=== PATIENT | male | born 1945 | race Caucasian/White ===

== ENCOUNTER → 2016-09-27 | Outpatient (CLI) | payer MEDICARE ==
[2016-09-27 09:46] LABS: CHOLESTEROL 160.43 mg/dL (0-200); Direct HDL 56 mg/dL (>40); TRIGLYCERIDES 77 mg/dL (<150)
[2016-09-27 09:57] LABS: DIRECT LDL 88 mg/dL (<100)
== END ==
LOC: OD 07:29
PROVIDERS: ATTEND Family Medicine Geriatric Medicine
DX: I12.9 Hypertensive chronic kidney disease with stage 1 through stage 4 chronic kidney disease, or unspecified chronic kidney disease (principal); N18.9 Chronic kidney disease, unspecified; E78.5 Hyperlipidemia, unspecified; R35.1 Nocturia; R53.83 Other fatigue
CPT/HCPCS: 36415; 80061; 84153; 84443

== ENCOUNTER → 2016-10-07 | Outpatient (CLI) | payer MEDICARE ==
[2016-10-07 12:32] LABS: APPEARANCE,URINE CLEAR; BILIRUBIN,URINE NEGATIVE (NEGATIVE); GLUCOSE, URINE NEGATIVE (NEGATIVE); KETONES,URINE NEGATIVE (NEGATIVE); LEUKOCYTE ESTERASE,URINE NEGATIVE (NEGATIVE); NITRITE,URINE NEGATIVE (NEGATIVE); PROTEIN,URINE NEGATIVE (NEGATIVE); URINE SPECIFIC GRAVITY 1.004; UROBILINOGEN,URINE NEGATIVE mg/dL (<2.0)
[2016-10-07 12:36] LABS: HEMATOCRIT 40.3 % (37.9-51.0); HEMOGLOBIN 13.9 g/dL (13.5-17.0); HGB HCT DIFFERENCE 1.4; MEAN CORPUSCULAR HGB CONC 34.4 g/dL (32.0-36.0); MEAN CORPUSCULAR VOLUME 90 fl (80-97); RED BLOOD COUNT 4.47 10^6/uL (4.35-5.55); RED CELL DISTRIBUTION WIDTH 12.3 % (11.5-14.0); WHITE BLOOD COUNT 4.7 10^3/uL (4.0-10.5)
[2016-10-07 13:26] LABS: ANION GAP 15 (5-19); BLOOD UREA NITROGEN 21 mg/dL (7-20); CALCIUM 9.5 mg/dL (8.4-10.2); CARBON DIOXIDE 24 mmol/L (22-30); CHLORIDE 98 mmol/L (98-107); CREATININE RESULT 1.38 mg/dL (0.52-1.25); GLUCOSE 99 mg/dL (75-110)
== END ==
LOC: OD 10:46
PROVIDERS: ATTEND Internal Medicine Nephrology
DX: I12.9 Hypertensive chronic kidney disease with stage 1 through stage 4 chronic kidney disease, or unspecified chronic kidney disease (principal); N18.3 Chronic kidney disease, stage 3 (moderate)
CPT/HCPCS: 36415; 80048; 81001; 85027

== ENCOUNTER → 2017-06-05 | Outpatient (CLI) | payer MEDICARE ==
[2017-06-05 09:20] LABS: ABSOLUTE BASOPHILS # (AUTO) 0.1 10^3/uL (0.0-0.2); ABSOLUTE EOSINOPHILS # (AUTO) 0.2 10^3/uL (0.0-0.6); ABSOLUTE LYMPHOCYTES (AUTO) 1.2 10^3/uL (0.5-4.7); ABSOLUTE MONOCYTES (AUTO) 0.6 10^3/uL (0.1-1.4); ABSOLUTE NEUT (AUTO) 3.2 10^3/uL (1.7-8.2); HEMATOCRIT 39.5 % (37.9-51.0); HEMOGLOBIN 13.8 g/dL (13.5-17.0); HGB HCT DIFFERENCE 1.9; LYMPHOCYTES % (AUTO) 22.5 % (13-45); MEAN CORPUSCULAR HEMOGLOBIN 31.7 pg (27.0-33.4); MEAN CORPUSCULAR HGB CONC 34.9 g/dL (32.0-36.0); MEAN CORPUSCULAR VOLUME 91 fl (80-97); MONOCYTES % (AUTO) 11.4 % (3-13); RED BLOOD COUNT 4.34 10^6/uL (4.35-5.55); RED CELL DISTRIBUTION WIDTH 12.9 % (11.5-14.0); SEGMENTED NEUTROPHILS % (AUTO) 62.1 % (42-78); WHITE BLOOD COUNT 5.2 10^3/uL (4.0-10.5)
[2017-06-05 09:52] LABS: ALANINE AMINOTRANSFERASE 40 U/L (21-72); ALBUMIN 4.4 g/dL (3.5-5.0); ALKALINE PHOSPHATASE 52 U/L (38-126); ANION GAP 12 (5-19); ASPARTATE AMINO TRANSFERASE 27 U/L (17-59); BILIRUBIN,DIRECT 0.4 mg/dL (0.0-0.4); BILIRUBIN,TOTAL 0.7 mg/dL (0.2-1.3); BLOOD UREA NITROGEN 19 mg/dL (7-20); CALCIUM 9.7 mg/dL (8.4-10.2); CARBON DIOXIDE 27 mmol/L (22-30); CHLORIDE 104 mmol/L (98-107); CHOLESTEROL 170.09 mg/dL (0-200); CREATININE RESULT 1.44 mg/dL (0.52-1.25); Direct HDL 55 mg/dL (>40); GLUCOSE 92 mg/dL (75-110); POTASSIUM 4.8 mmol/L (3.6-5.0); SODIUM 142.8 mmol/L (137-145); TRIGLYCERIDES 93 mg/dL (<150)
[2017-06-05 10:03] LABS: DIRECT LDL 105 mg/dL (<100)
== END ==
LOC: OD 07:56
PROVIDERS: ATTEND Internal Medicine
DX: I12.9 Hypertensive chronic kidney disease with stage 1 through stage 4 chronic kidney disease, or unspecified chronic kidney disease (principal); N18.9 Chronic kidney disease, unspecified; E78.5 Hyperlipidemia, unspecified; R35.1 Nocturia; R53.82 Chronic fatigue, unspecified
CPT/HCPCS: 36415; 80053; 80061; 84153; 84443; 85025

== ENCOUNTER → 2017-10-06 | Outpatient (CLI) | payer MEDICARE ==
[2017-10-06 10:39] LABS: HEMATOCRIT 42.6 % (37.9-51.0); HEMOGLOBIN 14.8 g/dL (13.5-17.0); MEAN CORPUSCULAR HEMOGLOBIN 31.3 pg (27.0-33.4); MEAN CORPUSCULAR HGB CONC 34.7 g/dL (32.0-36.0); MEAN CORPUSCULAR VOLUME 90 fl (80-97); PLATELET COUNT 252 10^3/uL (150-450); RED BLOOD COUNT 4.73 10^6/uL (4.35-5.55); RED CELL DISTRIBUTION WIDTH 12.8 % (11.5-14.0); WHITE BLOOD COUNT 5.6 10^3/uL (4.0-10.5)
[2017-10-06 11:00] LABS: ANION GAP 14 (5-19); BLOOD UREA NITROGEN 19 mg/dL (7-20); CALCIUM 10.8 mg/dL (8.4-10.2); CARBON DIOXIDE 24 mmol/L (22-30); CHLORIDE 101 mmol/L (98-107); GLUCOSE 96 mg/dL (75-110); POTASSIUM 5.4 mmol/L (3.6-5.0); SODIUM 138.6 mmol/L (137-145)
== END ==
LOC: OD 10:01
PROVIDERS: ATTEND Internal Medicine Nephrology
DX: I12.9 Hypertensive chronic kidney disease with stage 1 through stage 4 chronic kidney disease, or unspecified chronic kidney disease (principal); N18.3 Chronic kidney disease, stage 3 (moderate)
CPT/HCPCS: 36415; 80048; 85027

== ENCOUNTER → 2018-07-29 | Outpatient (CLI) | payer MEDICARE ==
[2018-07-29 08:38] LABS: ABSOLUTE EOSINOPHILS # (AUTO) 0.1 10^3/uL (0.0-0.6); ABSOLUTE LYMPHOCYTES (AUTO) 1.1 10^3/uL (0.5-4.7); ABSOLUTE MONOCYTES (AUTO) 0.6 10^3/uL (0.1-1.4); BASOPHILS % (AUTO) 0.7 % (0-2); EOSINOPHILS % (AUTO) 1.5 % (0-6); HEMATOCRIT 40.4 % (37.9-51.0); HEMOGLOBIN 14.1 g/dL (13.5-17.0); LYMPHOCYTES % (AUTO) 19.1 % (13-45); MEAN CORPUSCULAR HEMOGLOBIN 31.5 pg (27.0-33.4); MEAN CORPUSCULAR HGB CONC 34.8 g/dL (32.0-36.0); MEAN CORPUSCULAR VOLUME 91 fl (80-97); MONOCYTES % (AUTO) 10.9 % (3-13); PLATELET COUNT 242 10^3/uL (150-450); RED BLOOD COUNT 4.46 10^6/uL (4.35-5.55); SEGMENTED NEUTROPHILS % (AUTO) 67.8 % (42-78); TOTAL CELLS COUNTED % (AUTO) 100 %; WHITE BLOOD COUNT 5.9 10^3/uL (4.0-10.5)
[2018-07-29 08:52] LABS: ALANINE AMINOTRANSFERASE 27 U/L (21-72); ALBUMIN 4.6 g/dL (3.5-5.0); ALKALINE PHOSPHATASE 53 U/L (38-126); ANION GAP 10 (5-19); ASPARTATE AMINO TRANSFERASE 22 U/L (17-59); BILIRUBIN,DIRECT 0.2 mg/dL (0.0-0.4); BILIRUBIN,TOTAL 0.6 mg/dL (0.2-1.3); BLOOD UREA NITROGEN 20 mg/dL (7-20); CALCIUM 9.9 mg/dL (8.4-10.2); CARBON DIOXIDE 25 mmol/L (22-30); CHLORIDE 104 mmol/L (98-107); CHOLESTEROL 176.14 mg/dL (0-200); GLUCOSE 109 mg/dL (75-110); POTASSIUM 4.7 mmol/L (3.6-5.0); TOTAL PROTEIN 7.1 g/dL (6.3-8.2); TRIGLYCERIDES 90 mg/dL (<150)
[2018-07-29 09:03] LABS: DIRECT LDL 105 mg/dL (<100)
== END ==
LOC: OD 07:50
PROVIDERS: ATTEND Internal Medicine
DX: I10 Essential (primary) hypertension (principal); E78.5 Hyperlipidemia, unspecified; R35.1 Nocturia
CPT/HCPCS: 36415; 80053; 80061; 84153; 84443; 85025

== ENCOUNTER → 2018-08-10 | Outpatient (CLI) | payer MEDICARE ==
[2018-08-10 09:57] LABS: HEMATOCRIT 40.7 % (37.9-51.0); HEMOGLOBIN 14.2 g/dL (13.5-17.0); MEAN CORPUSCULAR HEMOGLOBIN 31.7 pg (27.0-33.4); MEAN CORPUSCULAR HGB CONC 34.9 g/dL (32.0-36.0); MEAN CORPUSCULAR VOLUME 91 fl (80-97); PLATELET COUNT 236 10^3/uL (150-450); RED BLOOD COUNT 4.48 10^6/uL (4.35-5.55); RED CELL DISTRIBUTION WIDTH 12.5 % (11.5-14.0); WHITE BLOOD COUNT 6.2 10^3/uL (4.0-10.5)
[2018-08-10 09:57] LABS: APPEARANCE,URINE CLEAR; BILIRUBIN,URINE NEGATIVE (NEGATIVE); COLOR,URINE YELLOW; GLUCOSE, URINE NEGATIVE (NEGATIVE); KETONES,URINE NEGATIVE (NEGATIVE); LEUKOCYTE ESTERASE,URINE NEGATIVE (NEGATIVE); NITRITE,URINE NEGATIVE (NEGATIVE); PROTEIN,URINE NEGATIVE (NEGATIVE); URINE SPECIFIC GRAVITY 1.005; UROBILINOGEN,URINE NEGATIVE mg/dL (<2.0)
[2018-08-10 13:15] LABS: ANION GAP 9 (5-19); BLOOD UREA NITROGEN 19 mg/dL (7-20); CALCIUM 9.9 mg/dL (8.4-10.2); CARBON DIOXIDE 28 mmol/L (22-30); CHLORIDE 101 mmol/L (98-107); GLUCOSE 114 mg/dL (75-110); POTASSIUM 4.6 mmol/L (3.6-5.0); SODIUM 137.6 mmol/L (137-145)
== END ==
LOC: OD 09:04
PROVIDERS: ATTEND Internal Medicine Nephrology
DX: I12.9 Hypertensive chronic kidney disease with stage 1 through stage 4 chronic kidney disease, or unspecified chronic kidney disease (principal); N18.3 Chronic kidney disease, stage 3 (moderate)
CPT/HCPCS: 36415; 80048; 81001; 85027

== ENCOUNTER 2018-11-24 15:23 | Emergency (ER) | payer MEDICARE ==
--- NOTE | 2018-11-24 16:28 | ER Document Report ---
ED Medical Screen (RME) - General Chief Complaint: Abdominal Pain Stated Complaint: ABDOMINAL PAIN Time Seen by Provider: 11/24/18 16:26 Primary Care Provider: Bryce MOFFETT MD [Primary Care Provider] - Follow up as needed Mode of Arrival: Ambulatory Information source: Patient Notes: 72-year-old male presented to ED for rectal bleeding that started about 2 PM. He states yesterday he was constipated took some laxatives. He states he had good results had for 5 bowel movements states he had some firm ones and then is gotten more more liquid as a day presents seated about 2 PM he had a mostly liquid with some flecks of stool in it that had blood in it. 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 He states he is also got a history of high blood pressure and hiatal hernia. He states he had a colonoscopy in the past as well as bilateral hip replacements. I have greeted and performed a rapid initial assessment of this patient. A comprehensive ED assessment and evaluation of the patient, analysis of test results and completion of medical decision making process will be conducted by an additional ED providers. TRAVEL OUTSIDE OF THE [place] IN LAST 30 DAYS: No - Related Data Allergies/Adverse Reactions: clopidogrel bisulfate [From Plavix] Allergy (Verified 11/24/18 15:41) severe itch Past Medical History - Past Medical History Cardiac Medical History: Reports: Hx Hypercholesterolemia - meds x 15 years, Hx Hypertension - meds x 10 years Denies: Hx Atrial Fibrillation, Hx Congestive Heart Failure, Hx Coronary Artery Disease, Hx Heart Attack, Hx Peripheral Vascular Disease, Hx Pulmonary Embolism, Hx Heart Murmur Pulmonary Medical History: Reports: Hx Bronchitis - last episode > 8 years ago Denies: Hx Asthma, Hx COPD, Hx Pneumonia, Hx Respiratory Failure, Hx Sleep Apnea, Hx Tuberculosis Neurological Medical History: Denies: Hx Seizures Renal/ Medical History: Denies: Hx Benign Prostatic Hyperplasia - does report nocturia x 1/night, Hx End Stage Renal Disease, Hx Kidney Stones, Hx Peritoneal Dialysis Malignancy Medical History: Denies Hx Leukemia, Denies Hx Lung Cancer GI Medical History: Reports: Hx Gastroesophageal Reflux Disease - meds x 10 years, Hx Hiatal Hernia. Denies: Hx Crohn's Disease, Hx Irritable Bowel, Hx Liver Failure, Hx Pancreatitis, Hx Ulcer - denies, but reports upper GI bleed Musculoskeltal Medical History: Reports Hx Arthritis, Denies Hx Fibromyalgia, Denies Hx Muscular Dystrophy Traumatic Medical History: Reports: Hx Fractures - r/t shrapnel 1967, Infectious Medical History: Denies: Hx HIV Past Surgical History: Reports: Hx Orthopedic Surgery. Denies: Hx Appendectomy, Hx Bowel Surgery, Hx Cholecystectomy, Hx Colostomy, Hx Coronary Artery Bypass Graft, Hx Gastric Bypass Surgery, Hx Herniorrhaphy, Hx Pacemaker, Hx Tonsillectomy - Immunizations Hx Diphtheria, Pertussis, Tetanus Vaccination: Yes Physical Exam - Vital signs Vitals: Temp Pulse Resp BP Pulse Ox 98.1 F 72 16 148/65 H 97 11/24/18 16:09 11/24/18 16:09 11/24/18 16:09 11/24/18 16:09 11/24/18 16:09 Course - Vital Signs Vital signs: Temp Pulse Resp BP Pulse Ox 98.1 F 72 16 148/65 H 97 11/24/18 16:09 11/24/18 16:09 11/24/18 16:09 11/24/18 16:09 11/24/18 16:09 Doctor's Discharge - Discharge Referrals: Bryce MOFFETT MD [Primary Care Provider] - Follow up as needed
[2018-11-24 18:11] LABS: ABSOLUTE MONOCYTES (AUTO) 0.5 10^3/uL (0.1-1.4); BASOPHILS % (AUTO) 0.8 % (0-2); EOSINOPHILS % (AUTO) 0.8 % (0-6); HEMATOCRIT 38.8 % (37.9-51.0); HEMOGLOBIN 13.4 g/dL (13.5-17.0); LYMPHOCYTES % (AUTO) 17.2 % (13-45); MEAN CORPUSCULAR HGB CONC 34.6 g/dL (32.0-36.0); MEAN CORPUSCULAR VOLUME 90 fl (80-97); MONOCYTES % (AUTO) 9.5 % (3-13); PLATELET COUNT 252 10^3/uL (150-450); RED BLOOD COUNT 4.33 10^6/uL (4.35-5.55); RED CELL DISTRIBUTION WIDTH 12.9 % (11.5-14.0); SEGMENTED NEUTROPHILS % (AUTO) 71.7 % (42-78); TOTAL CELLS COUNTED % (AUTO) 100 %; WHITE BLOOD COUNT 5.5 10^3/uL (4.0-10.5)
[2018-11-24 18:29] LABS: ALANINE AMINOTRANSFERASE 39 U/L (21-72); ALBUMIN 4.5 g/dL (3.5-5.0); ALKALINE PHOSPHATASE 50 U/L (38-126); ANION GAP 11 (5-19); ASPARTATE AMINO TRANSFERASE 27 U/L (17-59); BILIRUBIN,DIRECT 0.3 mg/dL (0.0-0.4); BILIRUBIN,TOTAL 0.3 mg/dL (0.2-1.3); BLOOD UREA NITROGEN 20 mg/dL (7-20); CALCIUM 9.8 mg/dL (8.4-10.2); CARBON DIOXIDE 25 mmol/L (22-30); CHLORIDE 93 mmol/L (98-107); GLUCOSE 103 mg/dL (75-110); POTASSIUM 5.1 mmol/L (3.6-5.0); SODIUM 128.5 mmol/L (137-145); TOTAL PROTEIN 7.3 g/dL (6.3-8.2)
--- NOTE | 2018-11-24 19:46 | ER Document Report ---
ED GI/ - General Chief Complaint: Abdominal Pain Stated Complaint: ABDOMINAL PAIN Time Seen by Provider: 11/24/18 16:26 Primary Care Provider: Bryce MOFFETT MD [ACTIVE STAFF] - Follow up as needed Mode of Arrival: Ambulatory Information source: Patient Notes: 72-year-old male presented to ED for complaint of rectal bleeding that started about 2 PM. He states yesterday he was constipated took some laxatives. He states he had good results with about 5 bowel movements and then about 2 PM he had a liquid bowel movement that had some flecks of blood in it. He states that he has had ischemic bowel in the past with a GI bleed in the stool looks the same to him as it did at that time. He states he has a history of high blood pressure and hiatal hernia. He states he has had a colonoscopy in the past with bilateral hip replacements. Patient states there is no active bleeding at this time and he has not had any stools since the Friday at 2 PM. TRAVEL OUTSIDE OF THE [place] IN LAST 30 DAYS: No - HPI Patient complains to provider of: Other - Rectal bleeding Onset: This afternoon Timing/Duration: Sudden Quality of pain: No pain Associated symptoms: Other - Active bleeding after taking laxative for constipation yesterday Exacerbated by: Denies Relieved by: Denies Similar symptoms previously: Yes Recently seen / treated by doctor: No - Related Data Allergies/Adverse Reactions: clopidogrel bisulfate [From Plavix] Allergy (Verified 11/24/18 15:41) severe itch Past Medical History - General Information source: Patient - Social History Smoking Status: Former Smoker Cigarette use (# per day): No Frequency of alcohol use: None Drug Abuse: None Lives with: Family Family History: Reviewed & Not Pertinent Patient has suicidal ideation: No Patient has homicidal ideation: No - Past Medical History Cardiac Medical History: Reports: Hx Hypercholesterolemia - meds x 15 years, Hx Hypertension - meds x 10 years Pulmonary Medical History: Reports: Hx Bronchitis - last episode > 8 years ago EENT Medical History: Reports: None Neurological Medical History: Reports: None Endocrine Medical History: Reports: None Renal/ Medical History: Reports: None Malignancy Medical History: Reports None GI Medical History: Reports: Hx Gastroesophageal Reflux Disease - meds x 10 years, Hx Hiatal Hernia, Hx Colonoscopy Musculoskeletal Medical History: Reports Hx Arthritis Skin Medical History: Reports None Psychiatric Medical History: Reports: None Traumatic Medical History: Reports: Hx Fractures - r/t [facility] 1967, Infectious Medical History: Reports: None Past Surgical History: Reports: Hx Orthopedic Surgery - Immunizations Hx Diphtheria, Pertussis, Tetanus Vaccination: Yes Hx Pneumococcal Vaccination: 04/20/14 Review of Systems - Review of Systems Constitutional: No symptoms reported EENT: No symptoms reported Cardiovascular: No symptoms reported Respiratory: No symptoms reported Gastrointestinal: Rectal bleeding Genitourinary: No symptoms reported Male Genitourinary: No symptoms reported Musculoskeletal: No symptoms reported Skin: No symptoms reported Hematologic/Lymphatic: No symptoms reported Neurological/Psychological: No symptoms reported -: Yes All other systems reviewed and negative Physical Exam - Vital signs Vitals: Temp Pulse Resp BP Pulse Ox 98.1 F 72 16 148/65 H 97 11/24/18 16:09 11/24/18 16:09 11/24/18 16:09 11/24/18 16:09 11/24/18 16:09 Interpretation: Normal - General General appearance: Appears well, Alert - HEENT Head: Normocephalic, Atraumatic Eyes: Normal Pupils: PERRL - Respiratory Respiratory status: No respiratory distress Chest status: Nontender Breath sounds: Normal Chest palpation: Normal - Cardiovascular Rhythm: Regular Heart sounds: Normal auscultation Murmur: No - Abdominal Inspection: Normal Distension: No distension Bowel sounds: Normal Tenderness: Nontender Organomegaly: No organomegaly - Rectal Tenderness: No Stool: Heme negative Hemorrhoids: None - Back Back: Normal, Nontender - Extremities General upper extremity: Normal inspection, Nontender, Normal color, Normal ROM, Normal temperature General lower extremity: Normal inspection, Nontender, Normal color, Normal ROM, Normal temperature, Normal weight bearing. No: Antonietta's sign - Neurological Neuro grossly intact: Yes Cognition: Normal Orientation: AAOx4 Kirsten Coma Scale Eye Opening: Spontaneous Kirsten Coma Scale Verbal: Oriented Arpin Coma Scale Motor: Obeys Commands Kirsten Coma Scale Total: 15 Speech: Normal Motor strength normal: LUE, RUE, LLE, RLE Sensory: Normal - Psychological Associated symptoms: Normal affect, Normal mood - Skin Skin Temperature: Warm Skin Moisture: Dry Skin Color: Normal Course - Re-evaluation Re-evalutation: 11/25/18 00:35 Labs were discussed with patient and also discussed with him the fact that he has a negative Hemoccult stool at this time. Patient did not give a urine before he was discharged. Patient's blood work and vital signs were stable he was discharged home after he verbalized understanding that he needed to follow- up with his primary care doctor and tool programmer. He states he would call his primary care doctor in the morning to set up a follow-up visit. Patient was discharged home. - Vital Signs Vital signs: Temp Pulse Resp BP Pulse Ox 97.8 F 71 18 156/73 H 98 11/24/18 19:55 11/24/18 19:55 11/24/18 19:55 11/24/18 19:55 11/24/18 19:55 - Laboratory Result Diagrams: 11/24/18 17:04 11/24/18 17:04 Laboratory results interpreted by me: 11/24/18 11/24/18 17:04 17:04 RBC 4.33 L Hgb 13.4 L Sodium 128.5 L Potassium 5.1 H Chloride 93 L Discharge - Discharge Clinical Impression: Rectal bleeding Condition: Stable Disposition: HOME, SELF-CARE Additional Instructions: Rectal Bleeding, Unclear Cause No definite cause has been found for the rectal bleeding you have experienced. Among the possible causes are internal or external hemorrhoids (internal hemorrhoids can't be felt on the outside), an anal fissure (a crack at the anal ring), infections or inflammatory diseases of the colon, tumors or polyps, or diverticula (diverticula are outpouchings from the colon wall). To establish a cause for your bleeding (or at least make certain there is no serious problem such as a tumor), further evaluation will be necessary. This may include special X-rays, or passage of a scope up into the colon. Be sure to keep your follow-up appointment. Should you develop brisk bleeding, abdominal pain, fever, lightheadedness, or fever, call the doctor or return at once. I have given you a copy of your lab results. Please follow-up with your primary care doctor by telephone tomorrow and be sure you follow-up with your tool programmer as discussed. Hemoccult which is hidden blood in the stool was negative during this visit. FOLLOW-UP CARE: If you have been referred to a physician for follow-up care, call the physicians office for an appointment as you were instructed or within the next two days. If you experience worsening or a significant change in your symptoms, notify the physician immediately or return to the Emergency Department at any time for re-evaluation. Forms: Elevated Blood Pressure Referrals: Bryce MOFFETT MD [ACTIVE STAFF] - Follow up as needed
[2018-11-24 19:56] VITALS: BP 156/73
== END 2018-11-24 19:55 | disposition home or self-care (01) ==
LOC: ER 15:23
DX: K62.5 Hemorrhage of anus and rectum (principal); E78.00 Pure hypercholesterolemia, unspecified; I10 Essential (primary) hypertension; Z96.643 Presence of artificial hip joint, bilateral
CPT/HCPCS: 36415; 80053; 85025; 99284

== ENCOUNTER → 2019-07-26 | Outpatient (CLI) | payer MEDICARE ==
[2019-07-26 08:58] LABS: ABSOLUTE EOSINOPHILS # (AUTO) 0.1 10^3/uL (0.0-0.6); ABSOLUTE MONOCYTES (AUTO) 0.5 10^3/uL (0.1-1.4); ABSOLUTE NEUT (AUTO) 3.1 10^3/uL (1.7-8.2); BASOPHILS % (AUTO) 1.1 % (0-2); HEMATOCRIT 42.1 % (37.9-51.0); HEMOGLOBIN 14.4 g/dL (13.5-17.0); LYMPHOCYTES % (AUTO) 20.4 % (13-45); MEAN CORPUSCULAR HEMOGLOBIN 31.3 pg (27.0-33.4); MEAN CORPUSCULAR HGB CONC 34.1 g/dL (32.0-36.0); MEAN CORPUSCULAR VOLUME 92 fl (80-97); MONOCYTES % (AUTO) 10.4 % (3-13); PLATELET COUNT 218 10^3/uL (150-450); RED BLOOD COUNT 4.58 10^6/uL (4.35-5.55); RED CELL DISTRIBUTION WIDTH 13.3 % (11.5-14.0); SEGMENTED NEUTROPHILS % (AUTO) 65.1 % (42-78); TOTAL CELLS COUNTED % (AUTO) 100 %; WHITE BLOOD COUNT 4.7 10^3/uL (4.0-10.5)
[2019-07-26 08:59] LABS: ABSOLUTE EOSINOPHILS # (AUTO) 0.1 10^3/uL (0.0-0.6); ABSOLUTE MONOCYTES (AUTO) 0.5 10^3/uL (0.1-1.4); ABSOLUTE NEUT (AUTO) 3.1 10^3/uL (1.7-8.2); BASOPHILS % (AUTO) 1.1 % (0-2); HEMATOCRIT 42.1 % (37.9-51.0); HEMOGLOBIN 14.4 g/dL (13.5-17.0); LYMPHOCYTES % (AUTO) 20.4 % (13-45); MEAN CORPUSCULAR HEMOGLOBIN 31.3 pg (27.0-33.4); MEAN CORPUSCULAR HGB CONC 34.1 g/dL (32.0-36.0); MEAN CORPUSCULAR VOLUME 92 fl (80-97); MONOCYTES % (AUTO) 10.4 % (3-13); PLATELET COUNT 218 10^3/uL (150-450); RED BLOOD COUNT 4.58 10^6/uL (4.35-5.55); RED CELL DISTRIBUTION WIDTH 13.3 % (11.5-14.0); SEGMENTED NEUTROPHILS % (AUTO) 65.1 % (42-78); TOTAL CELLS COUNTED % (AUTO) 100 %; WHITE BLOOD COUNT 4.7 10^3/uL (4.0-10.5)
[2019-07-26 09:00] LABS: APPEARANCE,URINE CLEAR; BILIRUBIN,URINE NEGATIVE (NEGATIVE); COLOR,URINE STRAW; GLUCOSE, URINE NEGATIVE (NEGATIVE); KETONES,URINE NEGATIVE (NEGATIVE); LEUKOCYTE ESTERASE,URINE NEGATIVE (NEGATIVE); NITRITE,URINE NEGATIVE (NEGATIVE); PROTEIN,URINE NEGATIVE (NEGATIVE); URINE SPECIFIC GRAVITY 1.005; UROBILINOGEN,URINE NEGATIVE mg/dL (<2.0)
--- NOTE | 2019-07-26 09:04 | RADIOLOGY REPORT (SQ) ---
EXAM DESCRIPTION: CHEST PA/LATERAL COMPLETED DATE/TIME: 07/26/2019 8:29 am REASON FOR STUDY: PRE-OP COMPARISON: 11/07/2014 EXAM PARAMETERS: NUMBER OF VIEWS: two views TECHNIQUE: Digital Frontal and Lateral radiographic views of the chest acquired. RADIATION DOSE: NA LIMITATIONS: none FINDINGS: LUNGS AND PLEURA: No opacities, masses or pneumothorax. No pleural effusion. MEDIASTINUM AND HILAR STRUCTURES: No masses or contour abnormalities. HEART AND VASCULAR STRUCTURES: Heart normal size. No evidence for failure. BONES: No acute findings. HARDWARE: None in the chest. OTHER: No other significant finding. IMPRESSION: NO SIGNIFICANT RADIOGRAPHIC FINDING IN THE CHEST. TECHNICAL DOCUMENTATION: JOB ID: [id number] [employer]- All Rights Reserved Reading location - IP/workstation name: [email or web address]
[2019-07-26 09:27] LABS: ALBUMIN 4.9 g/dL (3.5-5.0); ALKALINE PHOSPHATASE 43 U/L (38-126); ANION GAP 13 (5-19); ASPARTATE AMINO TRANSFERASE 30 U/L (17-59); BILIRUBIN,DIRECT 0.3 mg/dL (0.0-0.4); BILIRUBIN,TOTAL 0.6 mg/dL (0.2-1.3); BLOOD UREA NITROGEN 21 mg/dL (7-20); CALCIUM 10.3 mg/dL (8.4-10.2); CARBON DIOXIDE 26 mmol/L (22-30); CHLORIDE 101 mmol/L (98-107); CHOLESTEROL 212.79 mg/dL (0-200); GLUCOSE 101 mg/dL (75-110); POTASSIUM 4.8 mmol/L (3.6-5.0); TRIGLYCERIDES 100 mg/dL (<150)
[2019-07-26 09:37] LABS: DIRECT LDL 142 mg/dL (<100); ERYTHROCYTE SEDIMENTATION RATE 8 mm/hr (0-20)
[2019-07-26 09:40] LABS: ALBUMIN 4.9 g/dL (3.5-5.0); ANION GAP 13 (5-19); BLOOD UREA NITROGEN 21 mg/dL (7-20); CALCIUM 10.3 mg/dL (8.4-10.2); CARBON DIOXIDE 26 mmol/L (22-30); CHLORIDE 101 mmol/L (98-107); GLUCOSE 101 mg/dL (75-110); POTASSIUM 4.8 mmol/L (3.6-5.0)
--- NOTE | 2019-07-26 10:04 | EKG REPORT ---
SEVERITY:- NORMAL ECG - SINUS RHYTHM : Confirmed by: Karlos Artis 26-Jul-2019 10:04:06
[2019-07-26 10:24] LABS: C-REACTIVE PROTEIN < 5.0 mg/L (<10.0); PREALBUMIN 33.9 mg/dL (17.6-36.0)
== END ==
LOC: OD 07:32
PROVIDERS: ATTEND Internal Medicine
DX: Z01.818 Encounter for other preprocedural examination (principal); R94.31 Abnormal electrocardiogram [ECG] [EKG]; I12.9 Hypertensive chronic kidney disease with stage 1 through stage 4 chronic kidney disease, or unspecified chronic kidney disease; N18.9 Chronic kidney disease, unspecified; E78.5 Hyperlipidemia, unspecified; R35.1 Nocturia; R53.83 Other fatigue
CPT/HCPCS: 36415; 71046; 80048; 80061; 81001; 82040; 82306; 84134; 84153; 84443; 85025; 85652; 86140; 87070; 93005; 93010

== ENCOUNTER → 2019-07-30 | Outpatient (CLI) | payer MEDICARE ==
--- NOTE | 2019-07-30 16:07 | RADIOLOGY REPORT (SQ) ---
EXAM DESCRIPTION: CT LT UPPER EXTREMITY WITHOUT COMPLETED DATE/TIME: 07/30/2019 2:20 pm REASON FOR STUDY: PRIMARY OA LEFT SHOULDER (M19.012) M19.012 PRIMARY OSTEOARTHRITIS, LEFT SHOULDER COMPARISON: None. EXAM PARAMETERS: TECHNIQUE:Axial imaging performed through the left shoulder with reformatted rodriguez l and sagittal imaging windowed for bone and soft tissues. Images saved to PACS. 3D IMAGING: Were 3D images as MIP, SSD, or volume rendering performed at the work station? Yes All CT scanners at this facility use dose modulation, iterative reconstruction, and/or weight based d osing when appropriate to reduce radiation dose to as low as reasonably achievable (ALARA). [facility]: Dose Right [facility]: SureCare [facility]: Dose Right [facility]: Teradose 4D [facility]: Smart PunchTab RADIATION DOSE: CT Rad equipment meets quality standard of care and radiation dose reduction techniqu es were employed. CTDIvol: 20.8 mGy. DLP: 512 mGy-cm. mGy. LIMITATIONS: None. FINDINGS: SOFT TISSUES: No obvious swelling or foreign body. BONES: There is narrowing of the glenohumeral joint. There are subchondral cysts in the humeral head and glenoid. There are small marginal osteophytes in the humeral head. There is no fracture or dis location. MINERALIZATION: Normal. OTHER: No other significant finding. IMPRESSION: Glenohumeral degenerative joint disease. Images are available for review. 3D images we re produced. TECHNICAL DOCUMENTATION: JOB ID: [id number] [facility] [id number]: Final reports with documentation of one or more dose reduction techniques (e.g., Automate d exposure control, adjustment of the mA and/or kV according to patient size, use of iterative recons truction technique) 2010 [employer]- All Rights Reserved Reading location - IP/workstation name: [email or web address]
== END ==
LOC: RAD 14:05
PROVIDERS: ATTEND Orthopaedic Surgery
DX: M19.012 Primary osteoarthritis, left shoulder (principal)

== ENCOUNTER → 2019-08-09 | Outpatient (CLI) | payer MEDICARE ==
[2019-08-09 10:06] LABS: HEMATOCRIT 39.4 % (37.9-51.0); HEMOGLOBIN 13.7 g/dL (13.5-17.0); MEAN CORPUSCULAR HEMOGLOBIN 31.7 pg (27.0-33.4); MEAN CORPUSCULAR HGB CONC 34.7 g/dL (32.0-36.0); MEAN CORPUSCULAR VOLUME 91 fl (80-97); PLATELET COUNT 216 10^3/uL (150-450); RED BLOOD COUNT 4.31 10^6/uL (4.35-5.55); RED CELL DISTRIBUTION WIDTH 12.9 % (11.5-14.0)
[2019-08-09 10:08] LABS: APPEARANCE,URINE CLEAR; BILIRUBIN,URINE NEGATIVE (NEGATIVE); COLOR,URINE YELLOW; GLUCOSE, URINE NEGATIVE (NEGATIVE); KETONES,URINE NEGATIVE (NEGATIVE); LEUKOCYTE ESTERASE,URINE NEGATIVE (NEGATIVE); NITRITE,URINE NEGATIVE (NEGATIVE); PROTEIN,URINE NEGATIVE (NEGATIVE); URINE SPECIFIC GRAVITY 1.004; UROBILINOGEN,URINE NEGATIVE mg/dL (<2.0)
[2019-08-09 10:37] LABS: ANION GAP 11 (5-19); BLOOD UREA NITROGEN 19 mg/dL (7-20); CALCIUM 10.2 mg/dL (8.4-10.2); CARBON DIOXIDE 27 mmol/L (22-30); CHLORIDE 96 mmol/L (98-107); GLUCOSE 109 mg/dL (75-110); POTASSIUM 4.7 mmol/L (3.6-5.0)
== END ==
LOC: OD 09:26
PROVIDERS: ATTEND Internal Medicine Nephrology
DX: I12.9 Hypertensive chronic kidney disease with stage 1 through stage 4 chronic kidney disease, or unspecified chronic kidney disease (principal); N18.3 Chronic kidney disease, stage 3 (moderate)
CPT/HCPCS: 36415; 80048; 81001; 85027

== ENCOUNTER 2019-08-17 05:32 | Inpatient (IN) | payer MEDICARE ==
[~2019-08-17 05:32] MED LIST: ACETAMINOPHEN 325 MG TABLET ONE; ACETAMINOPHEN 325 MG TABLET PO PRN; CEFAZOLIN SODIUM 2 GM in DEXTROSE 5%-WATER 100 ML IV PRN; CELECOXIB 200 MG CAPSULE ONE; CELECOXIB 200 MG CAPSULE PO PRN; GABAPENTIN 100 MG CAPSULE ONE; GABAPENTIN 100 MG CAPSULE PO PRN; LACTATED RINGERS 1000 ML IV PRN; ONDANSETRON HCL INJ/PF 4 MG/2 ML SDV IV PRN; ONDANSETRON HCL INJ/PF 4 MG/2 ML SDV ONE; OXYCODONE HCL SR 10 MG TABLET PO ONE; OXYCODONE HCL SR 10 MG TABLET PO PRN; PANTOPRAZOLE SODIUM 20 MG TABLET.DR PO PRN; SCOPOLAMINE HYDROBROMIDE 1.5 MG PATCH.TD72 ONE; SCOPOLAMINE HYDROBROMIDE 1.5 MG PATCH.TD72 TD PRN; TRAMADOL HCL 50 MG TABLET ONE; TRAMADOL HCL 50 MG TABLET PO PRN; TRANEXAMIC ACID INJ/PF 1,000 MG/10 ML SDV IV PRN; VANCOMYCIN HCL 1,000 MG in DEXTROSE 5%-WATER 250 ML IV PRN
[2019-08-17] MEDS ORDERED: MIDAZOLAM 2 MG/2 ML INJ ONE (06:52)
[2019-08-17] MEDS ORDERED: FENTANYL CITRATE INJ/PF 100 MCG/2 ML AMPUL ONE ×2 (06:52→13:27)
[2019-08-17] MEDS ORDERED: TRANEXAMIC ACID INJ/PF 1,000 MG/10 ML SDV ONE ×2 (06:52→06:57)
[2019-08-17] MEDS ORDERED: PROPOFOL INJ 200 MG/20 ML VIAL IV ONE (06:53)
[2019-08-17] MEDS ORDERED: GENTAMICIN SULFATE INJ 80 MG/2 ML VIAL ONE (07:07)
[2019-08-17] MEDS ORDERED: BACITRACIN INJ 50,000 UNIT VIAL ONE (07:07)
[2019-08-17] MEDS ORDERED: HYDROMORPHONE HCL INJ/PF 2 MG/ML AMPULE ONE (08:57)
[2019-08-17] MEDS ORDERED: PROMETHAZINE HCL INJ 25 MG/1 ML VIAL IV PRN ×2 (09:02)
[2019-08-17] MEDS ORDERED: MORPHINE SULFATE 10 MG/ML INJ IV PRN ×2 (09:02→11:58)
[2019-08-17] MEDS ORDERED: FENTANYL CITRATE INJ/PF 100 MCG/2 ML AMPUL IV PRN ×3 (09:02)
[2019-08-17] MEDS ORDERED: DIPHENHYDRAMINE HCL 50 MG/ML VIAL IV PRN (09:02)
[2019-08-17] MEDS ORDERED: MEPERIDINE HCL/PF INJ 25 MG/1 ML DISP.SYRIN IV PRN (09:02)
[2019-08-17] MEDS ORDERED: ROCURONIUM BROMIDE INJ 50 MG/5 ML VIAL IV ONE (09:35)
[2019-08-17] MEDS ORDERED: PHENYLEPHRINE HCL INJ/PF 10 MG/1 ML SDV ONE (09:35)
[2019-08-17] MEDS ORDERED: NEOSTIGMINE METHYLSULFATE 10 MG/10 ML VIAL ONE (09:35)
[2019-08-17] MEDS ORDERED: GLYCOPYRROLATE 1 MG/5 ML VIAL ONE (09:35)
[2019-08-17] MEDS ORDERED: ONDANSETRON HCL INJ/PF 4 MG/2 ML SDV ONE (09:35)
[2019-08-17] MEDS ORDERED: LIDOCAINE 2% INJ-PF (20 MG/ML) 2 ML AMPUL ONE (09:35)
[2019-08-17] MEDS ORDERED: DEXAMETHASONE SOD PHOSPHATE INJ 4 MG/1 ML VIAL ONE (09:35)
[2019-08-17] MEDS: VANCOMYCIN HCL INJ 1000 MG VIAL ONE ×2 (09:45→10:40)
[2019-08-17] MEDS: BUPIVACAINE HCL 0.25 % INJ/PF (2.5 MG/1 ML) 30 ML VIAL ONE ×2 (09:48→10:48)
[2019-08-17] MEDS: LIDOCAINE 1% INJ-PF (10 MG/ML) 30 ML SDV ONE ×2 (09:49→10:48)
[2019-08-17] MEDS: KETOROLAC TROMETHAMINE INJ/PF 30 MG/1 ML SDV ONE ×2 (09:49→10:48)
[2019-08-17] MEDS ORDERED: OXYCODONE HCL IR 5 MG TABLET PO PRN ×2 (11:57→11:58)
[2019-08-17] MEDS ORDERED: TRAMADOL HCL 50 MG TABLET PO PRN (11:59)
[2019-08-17] MEDS ORDERED: PANTOPRAZOLE SODIUM 20 MG TABLET.DR PO PRN (12:02)
[2019-08-17] MEDS ORDERED: DIPHENHYDRAMINE HCL 25 MG CAPSULE PO PRN (12:03)
[2019-08-17] MEDS ORDERED: DOCUSATE SODIUM 100 MG CAPSULE PO PRN (12:03)
[2019-08-17] MEDS ORDERED: ZOLPIDEM TARTRATE 5 MG TABLET PO PRN (12:03)
[2019-08-17] MEDS ORDERED: NORMAL SALINE 1000 ML 1,000 ML IV PRN (12:04)
[2019-08-17] MEDS ORDERED: ONDANSETRON 4 MG TAB.RAPDIS PO PRN (12:04)
--- NOTE | 2019-08-17 12:38 | RADIOLOGY REPORT (SQ) ---
EXAM DESCRIPTION: SHOULDER LEFT 1 VIEW COMPLETED DATE/TIME: 08/17/2019 12:16 pm REASON FOR STUDY: POST OP M25.512 PAIN IN LEFT SHOULDER COMPARISON: CT left shoulder 07/30/2019 NUMBER OF VIEWS: AP view left shoulder TECHNIQUE: Digital radiographic images of the left shoulder post-procedure. LIMITATIONS: None. FINDINGS: BONES: No worrisome or unexpected findings post-procedure. DEVICE: Left humeral head replacement with glenoid prosthesis SOFT TISSUES: No worrisome findings. Expected postoperative soft tissue changes. IMPRESSION: SATISFACTORY POSTOPERATIVE left shoulder TECHNICAL DOCUMENTATION: JOB ID: [id number] [employer]- All Rights Reserved Reading location - IP/workstation name: [email or web address]
[2019-08-17] MEDS ORDERED: ACETAMINOPHEN 325 MG TABLET PO SCH (14:00)
--- NOTE | 2019-08-17 14:10 | Operative Report ---
Operative Report DATE OF SURGERY: 08/17/19 PREOPERATIVE DIAGNOSIS: Left shoulder severe primary osteoarthritis POSTOPERATIVE DIAGNOSIS: Left shoulder severe primary osteoarthritis OPERATION: Left total shoulder arthroplasty SURGEON: TANYA ACOSTA JR ANESTHESIA: GA COMPLICATIONS: none ESTIMATED BLOOD LOSS: 250cc PROCEDURE: Implants: [employer] equinox #10 press-fit humeral stem, posterior augment left medium cage cemented glenoid, tall 44 x 21 mm humeral head The patient was brought to the operating suite and laid supine on the operating table. 2 g of Ancef and 1 g of vancomycin were provided preoperatively. The patient was placed under general anesthesia. They were positioned on a standard table in a beachchair fashion. The patient was prepped and draped in standard sterile fashion. A timeout was performed. The incision was marked and started through the standard anterior deltopectoral approach. The cephalic vein was identified and taken laterally with the deltoid. Atraumatic retractors were placed underneath the deltoid both near its insertion as well as superiorly. The biceps tendon was identified in its groove which was then opened and followed superiorly to its base with curved scissors. A tenodesis was performed through the superior aspect of the pectoralis insertion and the remaining biceps was resected. The subscap was then released underneath the conjoined tendon and the superior border was identified followed by the inferior border. We then performed a lesser tuberosity osteotomy with a large flat osteotome. Two #2 Ethibond sutures were placed for retention at this point the upper extremity was externally rotated abducted and extended to dislocate and present the humeral head. While doing this the inferior capsule was released carefully while paying attention to avoid any encounter with the axillary nerve. A reamer was placed superiorly and reamed up until we reached a #10. We then placed a cutting guide onto the intramedullary reamer and cut the arthritic humeral head. The inferior osteophytes were rongeured to metaphyseal bone. We then broached up to a #10 broach and then irrigated the cut surface and the humeral canal. We then placed the final #10 implant. At this point we turned our attention to the glenoid. The subscap was placed under tension and a capsulotomy of the anterior capsule was performed carefully in order to avoid entering the muscle belly but releasing the subscap from the capsule in order to allow for excursion. After achieving this a Bankart retr actor was placed anterior and a Reardon retractor was placed posteriorly. This provided adequate exposure to the glenoid. We debrided the periphery of the glenoid removing labrum both anteriorly and posteriorly as well as the biceps tendon. The coracoid was then exposed as well and the G tracker from the navigation set was placed onto the coracoid. Following this the glenoid was registered with the software using the P tracker. We then proceeded with a center drill hole as navigated by the computer. Unfortunately this appeared to be slightly high and so we repeated the process and registering the glenoid. The subsequent to her whole was ideal and we proceeded to drill that and then proceed with reaming. Reaming was performed under navigation. The glenoid guide was placed in the drill holes were then oriented to the glenoid and drilled. We checked the depths to ensure that there was no cortical breach. A trial was placed and found not to have any rock and appropriate orientation. We then washed and irrigated thoroughly followed by cementation of the peg holes. We placed morselized bone graft in the center peg of the glenoid component as well as and the center of the bony glenoid. This was then impacted into place. We held pressure here until the cement was hardened. We then removed all retractors and return to the humeral side. A 44 head was sized and chosen and the orientation was selected based on appropriate rotation for ideal coverage. After trialing we decided to go with a tall head size. The breakaway torque screw was then adequately torqued. We then irrigated and cleaned the trunnion followed by impacting the final head and the appropriate orientation as selected previously. This was again taken through a trial range of motion and found to have ideal tension and stability. Following this 3 transosseous tunnels were made underneath the lesser tuberosity osteotomy. 3 #2 Ethibonds were then passed through these and subsequently passed through the capsular portion of the subscapularis. A superior #2 Vicryl suture was utilized to approximate the rotator interval and the lesser tuberosity anatomically. The Ethibonds were then tightened in a racking hitch fashion and tied. A running #2 Vicryl was then oversewn over the repair. We took the arm through range of motion and found this repair to be ideal without any micromotion. The wound was copiously irrigated and a Betadine soak was performed. After thorough suctioning 1 g of vancomycin was applied to the wound at this time. The deltopectoral interval was closed with 2-0 Monocryl in a running fashion. The skin was closed with 2-0 Monocryl in an inverted interrupted fashion. The superficial layer was closed with 3-0 running strata fix. A silver dressing was then placed onto a clean and dried wound. The patient was then placed in a abduction shoulder immobilizer, awakened from anesthesia, and transferred to the PACU in stable condition.
[2019-08-17] MEDS ORDERED: EPHEDRINE SULFATE INJ 50 MG/1 ML AMPULE ONE (14:32)
[2019-08-17 17:51] VITALS: BP 136/72
[2019-08-17] MEDS ORDERED: KETOROLAC TROMETHAMINE INJ/PF 30 MG/1 ML SDV IV SCH (18:00)
[2019-08-17] MEDS ORDERED: CEFAZOLIN SODIUM 2 GM in DEXTROSE 5%-WATER 100 ML IV SCH (18:00)
[2019-08-17] MEDS ORDERED: GABAPENTIN 100 MG CAPSULE PO SCH (22:00)
[2019-08-18] MEDS ORDERED: ASPIRIN 325 MG TABLET, ENT COATED PO SCH (10:00)
[2019-08-18] MEDS ORDERED: POLYETHYLENE GLYCOL 3350 POWDER 17 GM/1 PACKET PO SCH (10:00)
[2019-08-18] MEDS ORDERED: CELECOXIB 200 MG CAPSULE PO SCH (10:00)
--- NOTE | 2019-08-20 11:40 | PDOC DISCHARGE SUMMARY ---
Impression - Admit/DC Date/PCP Admission Date/Primary Care Provider: 08/17/19 05:32 LINSEY ALAMO MD Discharge Date: 08/17/19 - Assessment Summary: Mr. Nolasco is a very pleasant 73-year-old male who presented to my clinic with chronic left shoulder pain that is been going on for over a year. After thorough work-up and attempts at conservative treatment including activity modification and [id number] pain medication, they were having severe difficulty with ambulation and was over the counter pain medication for daily activity. They found the pain debilitating and decreasing thier quality of life as they were unable to perform activities of daily living such as ambulating short distances and getting in and out of the car. After a thorough work-up including x-rays that demonstrated joint space narrowing, [id number]-[id number] contact, subchondral sclerosis, and osteophyte formation as well as discussing risks and benefits and other treatment options, the patient elected to proceed with a left total shoulder arthroplasty. They were brought to the operating room on 08/17/2019 and underwent a left total shoulder arthroplasty and tolerated procedure very well with out complication. They were then admitted to the hospital floor for postoperative medical management, monitoring, and pain control. However, he was doing better than expected, saw PT on POD 0 and felt comfortable to return to home. They were discharged home on 08/17/2019. They had no acute events or complications over their course. All detailed instructions and prescriptions were provided to the patient prior to admission on the year prior office visit. - Additional Information Resuscitation Status: Full Code Discharge Diet: As Tolerated Discharge Activity: Activity As Tolerated, No Driving, Keep Legs Elevated, No Lifting Over 10 Pounds, Slowly Increase Activity, No tub bath, Walk Frequently Referrals: TANYA ACOSTA JR, DO [ACTIVE PROVISIONAL STAFF] - 08/27/19 9:45 am (08/18@0935- LEFT PT VM ABOUT FU APPT.) Home Medications: Fenofibrate,Micronized [Lofibra] 134 mg PO ACLUNCH 09/02/12 Lisinopril [Prinivil 20 mg Tablet] 20 mg PO QAM 09/02/12 Celecoxib [Celebrex 200 mg Capsule] 100 mg PO BID 12/13/14 Esomeprazole Magnesium [Nexium 24Hr] 20 mg PO DAILYP PRN 07/27/19 Rosuvastatin Calcium [Crestor 20 mg Tablet] 20 mg PO DAILY 08/05/19 Aspirin [Ecotrin 325 mg EC Tablet] 325 mg PO DAILY tabec 08/17/19 Celecoxib [Celebrex 200 mg Capsule] 200 mg PO DAILY capsule 08/17/19 Docusate Sodium [Colace 100 mg Capsule] 100 mg PO TIDP PRN capsule 08/17/19 Gabapentin [Neurontin 100 mg Capsule] 100 mg PO Q12 capsule 08/17/19 Oxycodone HCl [Oxy-Ir 5 mg Tablet] 10 mg PO Q4HP PRN tablet 08/17/19 Oxycodone HCl [Oxycontin Sr 10 mg Tablet] 10 mg PO PREOP PRN tab.sr.12h 08/17/19 Tramadol HCl [Ultram 50 mg Tablet] 50 mg PO Q4HP PRN tablet 08/17/19 History of Present Illiness History of Present Illness: JAILYN NOLASCO is a 73 year old male Physical Exam Vital Signs: Temp Pulse Resp BP Pulse Ox 98.1 F 93 16 136/72 H 99 08/17/19 18:39 08/17/19 18:39 08/17/19 18:39 08/17/19 18:39 08/17/19 18:39 Results Laboratory Results: Blood Type O POSITIVE 08/17/19 05:56 Antibody Screen NEGATIVE 08/17/19 05:56 Impressions: Shoulder X-Ray 08/17/19 00:00 IMPRESSION: SATISFACTORY POSTOPERATIVE left shoulder Stroke Is this a Stroke Patient?: No Acute Heart Failure - Is this a Heart Failure Patient?: No
== END 2019-08-17 18:59 | disposition home or self-care (01) | DRG 483 ==
LOC: INOR 05:32 → EDSTATUS 07:30 → 4S 14:43
PROVIDERS: ADMIT Orthopaedic Surgery; ATTEND Orthopaedic Surgery
PROC: 0RRK0JZ Replacement of Left Shoulder Joint with Synthetic Substitute, Open Approach (ICD-10-PCS; principal; 2019-08-17 07:30)
DX: M19.012 Primary osteoarthritis, left shoulder (principal); I10 Essential (primary) hypertension; Z79.899 Other long term (current) drug therapy
CPT/HCPCS: 01630; 36415; 86850; 86900; 86901; J0690; J1100; J1170; J1580; J1885; J2250; J2370; J2405; J2704; J2710; J3010; J3370; J3490; J7060